=== PATIENT | male | born 1965 | race Native Hawaiian/Other Pacific Islander ===

== ENCOUNTER 2020-10-31 13:09 | Emergency (ER) | payer OTHER ==
[2020-11-11 10:24] LABS: PLATELET COUNT 226 K/uL (142-355)
[2020-11-11 10:25] LABS: POTASSIUM 4.8 mmol/L (3.6-5.2)
== END 2020-10-31 16:52 | disposition short-term general hospital (02) ==
LOC: ED 13:09
PROVIDERS: Family Medicine
DX: K56.609 Unspecified intestinal obstruction, unspecified as to partial versus complete obstruction (principal); R11.0 Nausea; R10.84 Generalized abdominal pain; R00.0 Tachycardia, unspecified
CPT/HCPCS: 80053; 85027; 93005; 96360; 96375; 99284; J2270; J2405; Q9963